=== PATIENT | female | born 1980 | race Caucasian/White ===

== ENCOUNTER 2020-06-23 09:39 | Emergency (ER) | payer OTHER | END 2020-06-23 10:32 | disposition home or self-care (01) | LOC: JVIRT 09:39 → EDBD 09:39 → JVIRT 10:32 | DX: Z03.818 Encounter for observation for suspected exposure to other biological agents ruled out (principal) | CPT/HCPCS: 87070; 87880; C9803; Q3014-GT; U0003 ==

== ENCOUNTER 2023-01-30 14:25 | Emergency (ER) | payer OTHER ==
[2023-01-30 14:43] VITALS: BP 104/63; PULSE 59; RESP 16; TEMP 98.6
== END 2023-01-30 15:20 | disposition home or self-care (01) ==
LOC: FER 14:25
DX: M54.2 Cervicalgia (principal); M54.9 Dorsalgia, unspecified; S16.1XXA Strain of muscle, fascia and tendon at neck level, initial encounter; W22.8XXA Striking against or struck by other objects, initial encounter
CPT/HCPCS: 99283-25

== ENCOUNTER 2025-02-14 19:12 | Emergency (ER) | payer OTHER ==
[2025-02-14 19:48] VITALS: BP 94/57; PULSE 62; RESP 18; TEMP 98.1; BMI 19.3
== END 2025-02-14 20:50 | disposition home or self-care (01) ==
LOC: FER 19:12
DX: R51.9 Headache, unspecified (principal); R11.0 Nausea; H53.149 Visual discomfort, unspecified; F43.9 Reaction to severe stress, unspecified; W22.09XA Striking against other stationary object, initial encounter
CPT/HCPCS: 70450-TC; 99284-25